=== PATIENT | female | born 1960 | race Caucasian/White ===

== ENCOUNTER 2017-04-12 15:18 | Emergency (ER) | payer SELFPAY ==
[2017-04-12] MEDS ORDERED: TETRACAINE HCL 0.5% OPH SOLN 2 ML OD ONE (15:35)
--- NOTE | 2017-04-12 15:38 | ER Document Report ---
HPI - HPI Patient complains to provider of: eye redness Onset: Yesterday Onset/Duration: Waxing and waning Quality of pain: Achy Pain Level: 1 Context: Patient complains of right eye redness and tearing that started last night. Patient does report some light sensitivity. Patient denies any injury. Patient denies any glasses or contact lens use. Associated Symptoms: Other - Eye redness Exacerbated by: Denies Relieved by: Denies Similar symptoms previously: No Recently seen / treated by doctor: No - ROS ROS below otherwise negative: Yes Systems Reviewed and Negative: Yes All other systems reviewed and negative - EENT EENT: REPORTS: Eye problems - NEURO Neurology: DENIES: Weakness - REPRODUCTIVE Reproductive: DENIES: : - DERM Skin Color: Normal Skin Problems: None <SHAUN SANCHEZ - Last Filed: 04/12/17 17:19> Past Medical History - General Information source: Patient - Social History Smoking Status: Never Smoker Frequency of alcohol use: None Drug Abuse: None Occupation: none Family History: CAD, CVA, Hyperlipidemia, Hypertension Patient has suicidal ideation: No Patient has homicidal ideation: No - Past Medical History Cardiac Medical History: Reports: Hx Hypertension Pulmonary Medical History: Reports: Hx Bronchitis, Hx Pneumonia Renal/ Medical History: Reports: Hx Ovarian Cysts. Denies: Hx Peritoneal Dialysis Musculoskeltal Medical History: Reports Hx Arthritis, Reports Hx Musculoskeletal Trauma Psychiatric Medical History: Reports: Hx Depression Traumatic Medical History: Reports: Hx Fractures - big toe right foot Past Surgical History: Reports: Hx Section - x 2 - Immunizations Immunizations up to date: No Hx Diphtheria, Pertussis, Tetanus Vaccination: No - unk <SHAUN SANCHEZ - Last Filed: 04/12/17 17:19> Vertical Provider Document - CONSTITUTIONAL Agree With Documented VS: Yes Exam Limitations: No Limitations General Appearance: WD/WN, No Apparent Distress - INFECTION CONTROL TRAVEL OUTSIDE OF THE [place] IN LAST 30 DAYS: No - HEENT HEENT: Atraumatic, Normocephalic Notes: Corneal ulcer to right eye, not overlying pupil, sclera mildly injected with tearing, EOMI no foreign body, no dendritic lesions - NECK Neck: Normal Inspection - RESPIRATORY Respiratory: No Respiratory Distress O2 Sat by Pulse Oximetry: 100 - MUSCULOSKELETAL/EXTREMETIES Musculoskeletal/Extremeties: MAEW - NEURO Level of Consciousness: Awake, Alert, Appropriate Motor/Sensory: No Motor Deficit - DERM Integumentary: Warm, Dry, No Rash <SHAUN SANCHEZ - Last Filed: 04/12/17 17:19> Course - Re-evaluation Re-evalutation: 04/12/17 16:37 Dr. Rodrigues side for slit-lamp examination. Agrees with diagnosis of corneal ulcer and advises ophthalmology consultation Consulted with Dr. Moya, agrees with plan to give patient Besivance eyedrops 4 times a day and have patient follow-up in his [place] office on Saturday. Advises having patient to return to the emergency room over the weekend for any worsening of symptoms. Discussed importance of ophthalmology follow-up with patient. Discussed worsening signs or symptoms that patient should return immediately for. Patient verbalized understanding and agrees with plan of care. 04/12/17 16:40 The patient has been informed that they may have pre-hypertension or hypertension based on a blood pressure reading in the emergency department. I recommend that patient call the primary care provider listed on their discharge instructions or a physician of their choice by this week to arrange follow-up for further evaluation of possible pre-hypertension her hypertension. - Vital Signs Vital signs: Temp Pulse Resp BP Pulse Ox 97.9 F 107 H 15 151/77 H 100 04/12/17 15:24 04/12/17 15:24 04/12/17 15:24 04/12/17 15:24 04/12/17 15:24 <SHAUN SANCHEZ - Last Filed: 04/12/17 17:19> - Re-evaluation Re-evalutation: 04/12/17 21:28 I Did personally seen and examined this patient in conjunction with Kathryn Sanchez nurse practitioner. There was no history of trauma to the eye, was not welding, there was not any foreign body to the eye. She did develop this pain and tearing to the right eye last evening. There is no visual defect. Slit- lamp examination confirms corneal ulcer without dendritic lesion or foreign body. It is not over the pupil. - Vital Signs Vital signs: Temp Pulse Resp BP Pulse Ox 97.9 F 100 18 147/80 H 100 04/12/17 15:24 04/12/17 17:09 04/12/17 17:09 04/12/17 17:09 04/12/17 17:21 <JOSIE RODRIGUES - Last Filed: 04/12/17 21:28> Procedures - Eye Procedure Right Fluorescein applied: Right Antibiotic Oinment/Drps Admin: Right eye Slit lamp used: Yes Eyes picture: 1 - corneal ulcer 3mm x1 mm, with small satellite lesion <SHAUN SANCHEZ - Last Filed: 04/12/17 17:19> Discharge <SHAUN SANCHEZ - Last Filed: 04/12/17 17:19> <JOSIE RODRIGUES - Last Filed: 04/12/17 21:28> - Discharge Clinical Impression: Corneal ulcer of right eye, Hx of essential hypertension Condition: Stable Disposition: HOME, SELF-CARE Instructions: Eyedrop Use ([facility]), Corneal Ulceration ([facility]) Additional Instructions: Return immediately for any new or worsening symptoms Followup with your primary care provider, call tomorrow to make a followup appointment You will need to follow-up with the shower room attendant Dr. Moya on Saturday in his [place] office. Call Saturday morning for an appointment time, let them know that Dr. Moya was consulted regarding your care. Your blood pressure was elevated today, recheck with your primary doctor next week to have this reevaluated Besivance drops, instill 1 drop to right eye every 6 hours Prescriptions: Besifloxacin HCl [Besivance 0.6% Oph Susp 5 ml] 1 drop OP QID #1 bottle Forms: Elevated Blood Pressure Referrals: PEDRO PABLO MOYA DO [ACTIVE STAFF] - 04/15/17
[2017-04-12] MEDS ORDERED: BESIFLOXACIN HCL 0.6% OPH SUSP 5 ML BOTTLE OD ONE (16:39)
[2017-04-12 17:10] VITALS: BP 147/80
== END 2017-04-12 17:09 | disposition home or self-care (01) ==
LOC: ER 15:18
DX: H16.001 Unspecified corneal ulcer, right eye (principal); I10 Essential (primary) hypertension
CPT/HCPCS: 99283